=== PATIENT | female | born 1975 | race Caucasian/White ===

== ENCOUNTER 2020-10-15 10:56 | Emergency (ER) | payer MEDICAID ==
[~2020-10-15] VITALS: Ht 149.9 cm; Wt 74.1 kg
[2020-10-15 11:13] VITALS: BP 110/74
[2020-10-15] MEDS ORDERED: DIPH,PERTUSS(ACELL),TET VAC/PF 0.5 ML IM-VACC ONE ×2 (11:21→11:30)
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
[2020-10-15] MEDS ORDERED: LIDOCAINE-MPF 1%, 5ML INFIL ONE (11:30)
[2020-10-15] MEDS ORDERED: LIDOCAINE-MPF 1%, 2ML ONE (11:37)
[2020-10-15] MEDS ORDERED: NEOSPORIN OINT. PKT 1 PACKET ONE (12:22)
--- NOTE | 2020-10-15 13:00 | NUR ---
PT RECE'VD DISCHARGE INSTRUCTIONS AND EDUCATION. PT HAD NO FURTHER QUESTIONS. PT AMBULATED TO DC AREA, STEADY GAIT.
== END 2020-10-15 13:27 | disposition home or self-care (01) ==
LOC: ED 12:16
DX: S61.212A Laceration without foreign body of right middle finger without damage to nail, initial encounter (principal); X58.XXXA Exposure to other specified factors, initial encounter; Y93.89 Activity, other specified; Y92.89 Other specified places as the place of occurrence of the external cause; Y99.8 Other external cause status
CPT/HCPCS: 12001; 90471; 90715; 99283

== ENCOUNTER 2021-01-01 12:30 | Emergency (ER) | payer MEDICAID ==
[~2021-01-01] VITALS: Ht 149.9 cm; Wt 72.2 kg
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
--- NOTE | 2021-01-01 13:08 | NUR ---
PT TO XRAY
[2021-01-01] MEDS ORDERED: ASPIRIN 81 MG TABLET CHEW ONE (13:14)
[2021-01-01] MEDS ORDERED: KETOROLAC 30 MG/1 ML ONE (13:14)
[2021-01-01] MEDS ORDERED: KETOROLAC 30 MG/1 ML IVPush ONE (13:30)
[2021-01-01] MEDS ORDERED: ASPIRIN 81 MG TABLET CHEW PO ONE (13:30)
[2021-01-01] MEDS ORDERED: SODIUM CHLORIDE FLUSH 10ML SYR IVF ONE (13:30)
--- NOTE | 2021-01-01 13:34 | NUR ---
PT MEDICATED PER MAR
[2021-01-01 13:49] LABS: ALBUMIN 3.2 g/dL (3.4-5.0); ANION GAP 1 mmol/L (5-15); CALCIUM 8.6 mg/dL (8.5-10.1); CHLORIDE 111 mmol/L (98-107); CREATININE 0.56 mg/dL (0.55-1.02)
[2021-01-01 13:51] LABS: BASOPHILS % (AUTO) 1 % (0-1); EOSINOPHILS % (AUTO) 2 % (1-7); LYMPHOCYTES % (AUTO) 20 % (22-44); MD NO; MEAN CORPUSCULAR HEMOGLOBIN 29.8 pg (27.0-34.8); MEAN CORPUSCULAR HGB CONC 33.2 g/dL (32.4-35.8); MEAN PLATELET VOLUME 8.9 fL (7.4-10.4); MONOCYTES % (AUTO) 8 % (2-9); NEUTROPHILS % (AUTO) 70 % (42-75); PLATELET COUNT 248 x10^3/uL (130-400); RED BLOOD COUNT 4.57 x10^6/uL (3.82-5.3); RED CELL DISTRIBUTION WIDTH 15.1 % (9.6-15.2)
[2021-01-01 14:16] VITALS: BP 114/79
--- NOTE | 2021-01-01 14:16 | NUR ---
PT RESTING IN [facility]. VSS. UP FOR RECHECK
[2021-01-01 14:46] LABS: TROPONIN I < 0.015 ng/mL (0.000-0.045)
== END 2021-01-01 15:46 | disposition home or self-care (01) ==
LOC: ED 13:39
DX: R07.89 Other chest pain (principal); R59.0 Localized enlarged lymph nodes; Z23 Encounter for immunization
CPT/HCPCS: 36415; 71045; 80048; 82040; 83880; 84484; 85025; 93005; 96374; 99285; J1885